=== PATIENT | female | born 1970 | race Caucasian/White ===

== ENCOUNTER 2019-08-06 08:57 | Emergency (ER) | payer BC, MEDICAID ==
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
[2019-08-06 10:30] VITALS: BP 131/94; PULSE 85
== END 2019-08-06 10:26 | disposition home or self-care (01) ==
LOC: JD.ED 08:57
DX: N12 Tubulo-interstitial nephritis, not specified as acute or chronic (principal); I10 Essential (primary) hypertension; J45.909 Unspecified asthma, uncomplicated; F41.9 Anxiety disorder, unspecified; F32.9 Major depressive disorder, single episode, unspecified; Z88.8 Allergy status to other drugs, medicaments and biological substances; Z88.0 Allergy status to penicillin; Z88.2 Allergy status to sulfonamides; Z91.041 Radiographic dye allergy status; Z79.899 Other long term (current) drug therapy
CPT/HCPCS: 81001; 87086; 87088; 99283; 99284

== ENCOUNTER 2019-08-08 17:09 | Emergency (ER) | payer MEDICAID ==
[2019-08-08] MEDS ORDERED: Alum Hydrox/Mag Hydrox/Simeth 30 ML, Lidocaine 2% 15 ML PO ONE ×2 (17:43)
[2019-08-08] MEDS ORDERED: HYDROmorphone 0.5 MG/0.5 ML Syringe IVPUSH ONE ×2 (17:48→18:35)
[2019-08-08] MEDS ORDERED: Sucralfate Suspension 1 GM/10 ML Cup PO ONE (17:56)
[2019-08-08] MEDS ORDERED: Pantoprazole 40 MG Vial IVPUSH ONE (17:56)
--- NOTE | 2019-08-08 18:11 | EDM.PDOC ---
ED HPI GENERAL MEDICAL PROBLEM - General Chief Complaint: Abdominal Pain Stated Complaint: ABDOMINAL PAIN/HIGH BP Time Seen by Provider: 08/08/19 17:11 - History of Present Illness INITIAL COMMENTS - FREE TEXT/NARRATIVE: 49-year-old female presents the emergency room with upper abdominal pain. Patient was recently seen here diagnosed with a UTI with back pain and a positive UA. She was started on Levaquin. Today the patient was actually feeling better was getting up and doing stuff around the house she took 600 mg of ibuprofen and shortly after this developed severe upper abdominal pain. The patient has had history of bleeding ulcers in the past and this reminds her of that. Patient does not have any black or tarry stools. The patient did try Tums and omeprazole at home and did get a little bit of relief with that. Abdominal Pain Score (Numeric/FACES): 10 - Related Data Allergies Allergy/AdvReac Type Severity Reaction Status Date / Time Iodinated Contrast Media Allergy Anaphylactic Verified 08/08/19 17:31 [Iodinated Contrast Media - Shock IV Dye] iodine Allergy Anaphylactic Verified 08/08/19 17:31 Shock Iodine and Iodide Containing Allergy Anaphylactic Verified 08/08/19 17:31 Produc Shock Penicillins Allergy Anaphylactic Verified 08/08/19 17:31 Shock Sulfa (Sulfonamide Allergy Anaphylactic Verified 08/08/19 17:31 Antibiotics) Shock tetracycline [Tetracycline] Allergy Nausea and Verified 08/08/19 17:31 Vomiting Home Meds: Home Meds ClonazePAM [KlonoPIN] 1 mg PO TID 09/15/15 [History] dilTIAZem HCl [Diltiazem 24Hr ER] 300 mg PO DAILY 01/21/16 [History] Cetirizine [ZyrTEC] 10 mg PO BEDTIME PRN 02/20/17 [History] diphenhydrAMINE [Benadryl] 50 mg PO DAILY 05/07/17 [History] Acetaminophen [Tylenol] 650 mg PO Q4H PRN 08/06/19 [History] Ibuprofen [Advil] 600 mg PO Q6H PRN 08/06/19 [History] levoFLOXacin [Levaquin] 500 mg PO DAILY #10 tab 08/06/19 [Rx] Famotidine [Pepcid] 20 mg PO ASDIRECTED #30 tablet 08/08/19 [Rx] Lansoprazole [Prevacid] 30 mg PO Q24H #30 capsule. 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 Dermatologic History: Reports: None - Infectious Disease History Infectious Disease History: Reports: Chicken Pox - Past Surgical History Other HEENT Surgeries/Procedures: surgery to jaw area GI Surgical History: Reports: EGD Female Surgical History: Reports: Breast Implant Musculoskeletal Surgical History: Reports: Other (See Below) Other Musculoskeletal Surgeries/Procedures:: jaw surgery for tumors, impanted plate. Social & Family History - Family History Family Medical History: Noncontributory Oncologic: Reports: Brain - Tobacco Use Smoking Status *Q: Never Smoker - Caffeine Use Caffeine Use: Reports: Coffee, Energy Drinks - Living Situation & Occupation Living situation: Reports: Single Occupation: Unemployed ED ROS GENERAL - Review of Systems Review Of Systems: See Below Constitutional: Reports: No Symptoms. Denies: Fever, Chills HEENT: Reports: No Symptoms Respiratory: Reports: No Symptoms Cardiovascular: Reports: No Symptoms GI/Abdominal: Reports: Abdominal Pain. Denies: Black Stool, Bloody Stool, Constipation, Diarrhea : Reports: Dysuria, Flank Pain. Denies: Frequency, Urgency Musculoskeletal: Reports: No Symptoms Skin: Reports: No Symptoms ED EXAM, GI/ABD - Physical Exam Exam: See Below General Appearance: Alert, Moderate Distress (From pain), Other (Very cooperative answering questions appropriately) Head: Atraumatic, Normocephalic Neck: Normal Inspection, Supple, Non-Tender, Full Range of Motion Respiratory/Chest: No Respiratory Distress, Lungs Clear, Normal Breath Sounds Cardiovascular: Regular Rate, Rhythm, No Edema, No Murmur GI/Abdominal Exam: Normal Bowel Sounds, Other (Nephric and epigastric discomfort with palpation no rigidity rebound or guarding noted no other significant abdominal pain noted.) Back Exam: Normal Inspection. No: CVA Tenderness (L), CVA Tenderness (R) Extremities: Normal Inspection, No Pedal Edema Course - Vital Signs Last Recorded V/S: Last Vital Signs Temp 36.6 C 08/08/19 17:26 Pulse 99 08/08/19 17:26 Resp 16 08/08/19 17:26 BP 151/98 H 08/08/19 17:26 Pulse Ox 98 08/08/19 17:26 - Orders/Labs/Meds Labs: Laboratory Tests 08/08/19 08/08/19 Range/Units 17:48 17:48 WBC 9.04 (3.98-10.04) K/mm3 RBC 4.28 (3.98-5.22) M/mm3 Hgb 12.2 (11.2-15.7) gm/dl Hct 39.1 (34.1-44.9) % MCV 91.4 (79.4-94.8) fl MCH 28.5 (25.6-32.2) pg MCHC 31.2 L (32.2-35.5) g/dl RDW Std Deviation 43.5 (36.4-46.3) fL Plt Count 356 (182-369) K/mm3 MPV 8.9 L (9.4-12.3) fl Neut % (Auto) 65.2 (34.0-71.1) % Lymph % (Auto) 26.3 (19.3-51.7) % [place] % (Auto) 6.6 (4.7-12.5) % Eos % (Auto) 1.4 (0.7-5.8) Baso % (Auto) 0.3 (0.1-1.2) % Neut # (Auto) 5.88 (1.56-6.13) K/mm3 Lymph # (Auto) 2.38 (1.18-3.74) K/mm3 [place] # (Auto) 0.60 H (0.24-0.36) K/mm3 Eos # (Auto) 0.13 (0.04-0.36) K/mm3 Baso # (Auto) 0.03 (0.01-0.08) K/mm3 Sodium 137 (136-145) mEq/L Potassium 3.9 (3.5-5.1) mEq/L Chloride 101 (98-107) mEq/L Carbon Dioxide 26 (21-32) mEq/L Anion Gap 13.9 (5-15) BUN 8 (7-18) mg/dL Creatinine 0.9 (0.55-1.02) mg/dL Est Cr Clr Drug Dosing 65.29 mL/min Estimated GFR (MDRD) > 60 (>60) mL/min BUN/Creatinine Ratio 8.9 L (14-18) Glucose 91 (74-106) mg/dL Calcium 9.1 (8.5-10.1) mg/dL Total Bilirubin 0.2 (0.2-1.0) mg/dL AST 22 (15-37) U/L ALT 29 (14-59) U/L Alkaline Phosphatase 48 (46-116) U/L Total Protein 7.6 (6.4-8.2) g/dl Albumin 4.2 (3.4-5.0) g/dl Globulin 3.4 gm/dL Albumin/Globulin Ratio 1.2 (1-2) Lipase 326 (73-393) U/L Meds: Medications Discontinued Medications Generic Name Dose Route Start Last Admin Trade Name Freq PRN Reason Stop Dose Admin Al Hydroxide/Mg Hydroxide 30 0 ml 08/08/19 17:43 08/08/19 17:52 ml/ Lidocaine HCl 15 ml PO 08/08/19 17:44 45 ml ONETIME ONE Administration Hydromorphone HCl 0.5 mg 08/08/19 17:48 08/08/19 17:53 Dilaudid IVPUSH 08/08/19 17:49 0.5 mg ONETIME ONE Administration Hydromorphone HCl 0.5 mg 08/08/19 18:35 08/08/19 18:40 Dilaudid IVPUSH 08/08/19 18:36 0.5 mg ONETIME ONE Administration Pantoprazole Sodium 80 mg 08/08/19 17:56 08/08/19 18:27 Protonix Iv IVPUSH 08/08/19 17:57 80 mg BOLUS ONE Administration Promethazine HCl 25 mg 08/08/19 18:35 08/08/19 18:40 Phenergan IM 08/08/19 18:36 25 mg ONETIME ONE Administration Sucralfate 1 gm 08/08/19 17:56 08/08/19 18:27 Carafate PO 08/08/19 17:57 1 gm ONETIME ONE Administration - Re-Assessments/Exams Free Text/Narrative Re-Assessment/Exam: 08/08/19 18:42 Reviewed her culture and sensitivity which grew out Gardnerella more consistent with bacterial vaginosis will stop the Levaquin and start her on Flagyl the patient responded favorably to a GI cocktail the burning sensation went away she still having some significant discomfort we will try and treat this as well. 08/08/19 19:52 Patient is doing much better at this time. We will discharge her on PPI therapy have her use famotidine as well, at least for the short-term. We will give her some pain medication and nausea medication so she gets by the next few days until the PPI has a chance to take effect Departure - Departure Time of Disposition: 20:03 Disposition: Home, Self-Care 01 Clinical Impression: Dyspepsia - Discharge Information Prescriptions: Famotidine [Pepcid] 20 mg PO ASDIRECTED #30 tablet Lansoprazole [Prevacid] 30 mg PO Q24H #30 capsule. metroNIDAZOLE [Flagyl] 500 mg PO Q12H #14 tablet Referrals: Guille Case MD [Primary Care Provider] - Forms: ED Department Discharge Additional Instructions: Return to the emergency room with any questions problems or worsening symptoms. Follow-up with your regular doctor as scheduled. Take the medications as directed. 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 Do not drive or return to work within 12 hours of using the pain medication or the nausea medication. Sepsis Event Note - Evaluation Sepsis Screening Result: No Definite Risk - Focused Exam Vital Signs: Vital Signs Temp Pulse Resp BP Pulse Ox 08/08/19 17:26 36.6 C 99 16 151/98 H 98 Date Exam was Performed: 08/08/19 Time Exam was Performed: 19:52
[2019-08-08] MEDS ORDERED: Promethazine 25 MG/ML SDV IM ONE (18:35)
[2019-08-08 20:26] VITALS: BP 133/81; PULSE 89
== END 2019-08-08 20:22 | disposition home or self-care (01) ==
LOC: JD.ED 17:09
DX: R10.13 Epigastric pain (principal); I10 Essential (primary) hypertension; J45.909 Unspecified asthma, uncomplicated; F41.9 Anxiety disorder, unspecified; F32.9 Major depressive disorder, single episode, unspecified; Z88.0 Allergy status to penicillin; Z88.2 Allergy status to sulfonamides; Z91.041 Radiographic dye allergy status; Z88.1 Allergy status to other antibiotic agents; Z79.899 Other long term (current) drug therapy
CPT/HCPCS: 36415; 80053; 83690; 85025; 96372; 96374; 96375; 96376; 99284; A9270; C9113; J1170; J2550; 99283